=== PATIENT | female | born 1955 | race Caucasian/White ===

== ENCOUNTER 2017-01-22 16:54 | Inpatient (IN) | payer MEDICARE, MEDICAID ==
[~2017-01-22] VITALS: Ht 152.4 cm; Wt 70.3 kg
[2017-01-22 21:00] VITALS: BP 127/80
[2017-01-22] MEDS: DuoNeb 0.5-3(2.5)mg/3ml neb HHN SCH (23:29)
[2017-01-23] VITALS: BP 118/78
[2017-01-23] MEDS: DuoNeb 0.5-3(2.5)mg/3ml neb HHN SCH ×5 (02:51→20:05)
[2017-01-23 04:00] VITALS: BP 118/75
[2017-01-23 07:14] LABS: ANION GAP 19 (5-15); CARBON DIOXIDE 24 mEQ/L (20-30); CHLORIDE 99 mEQ/L (98-107); CREATININE 0.6 mg/dL (0.5-0.9); GLOMERULAR FILTRATION RATE > 60 mL/min (>60); HEMOLYSIS 31; POTASSIUM 4.1 mEQ/L (3.4-4.9); SODIUM 142 mEQ/L (135-145)
[2017-01-23 07:25] LABS: BASOPHILS % (AUTO) 1.6 % (0.0-2.0); LYMPHOCYTES % (AUTO) 31.3 % (20.0-45.0); MEAN CORPUSCULAR HEMOGLOBIN 31.6 PG (27.0-31.0); MEAN CORPUSCULAR HGB CONC 33.8 G/DL (32.0-36.0); MEAN CORPUSCULAR VOLUME 93 FL (80-99); MEAN PLATELET VOLUME 6.8 FL (6.5-10.1); MONOCYTES % (AUTO) 9.1 % (1.0-10.0); PLATELET COUNT 230 K/UL (150-450); RED BLOOD COUNT 4.61 M/UL (4.20-5.40); RED CELL DISTRIBUTION WIDTH 12.1 % (11.6-14.8); WHITE BLOOD COUNT 8.6 K/UL (4.8-10.8)
[2017-01-23 08:11] VITALS: BP 116/77
[2017-01-23 11:36] VITALS: BP 116/75
--- NOTE | 2017-01-23 13:37 | Diagnostic Imaging Report ---
Indication: ASTHMA chest pain Technique: One view of the chest Comparison: none Findings: Lungs and pleural spaces are clear. Heart size is normal Impression: No acute process
--- NOTE | 2017-01-23 13:43 | History and Physical ---
History of Present Illness General Date patient seen: Jan 23, 2017 Time patient seen: 13:42 Reason for Hospitalization: acute asthma exacerbation Present Illness HPI 61y/o female with pmh of asthma, HTN who presents with SOB and weakness. Pt lives at [facility]. She has been feeling more SOB for the past few days. She uses her albuterol inhaler PRN but has had to use it more often. She denies chest pain. Does c/o a cough w/ some mucus production. No fevers/chills, nausea/vomiting, diarrhea/constipation, abd pain. Also w/ generalized weakness and unsteady gait. States her ankles are weak. Allergies: Coded Allergies: No Known Allergies (Unverified , 01/22/17) Patient History History Provided By: Patient, Medical Record, PMD Healthcare decision maker Resuscitation status Advanced Directive on File Past Medical/Surgical History Past Medical/Surgical History: (1) HTN (hypertension) (2) Asthma Family History Family History: Patient reports no known family medical history. Social History Social History: (1) lives in [facility] Review of Systems Eye: Reports: no symptoms ENT: Reports: no symptoms Respiratory: Reports: cough, shortness of breath Cardiovascular: Reports: no symptoms Gastrointestinal: Reports: no symptoms Genitourinary: Reports: no symptoms Musculoskeletal: Reports: no symptoms Skin: Reports: no symptoms Psychiatric: Reports: no symptoms Neurological: Reports: no symptoms Endocrine: Reports: no symptoms Hematologic/Lymphatic: Reports: no symptoms All Other Systems: negative except mentioned in HPI Physical Exam Physical Exam Narrative General: alert, cooperative, no distress, appears stated age Head: normocephalic, without obvious abnormality, atraumatic Eyes: conjunctivae/corneas clear. PERRL, EOM's intact Throat: lips, mucosa, and tongue normal. MMM Neck: supple, symmetrical, trachea midline, and no JVD Lungs: some wheezing b/l Heart: regular rate and rhythm, S1, S2 normal, no murmur, click, rub or gallop Abdomen: soft, non-tender, non-distended, bowel sounds normal; no masses or organomegaly Extremities: extremities normal, atraumatic, no cyanosis or edema Pulses: 2+ and symmetric Skin: skin color, texture, turgor normal; no rashes or lesions Neurologic: grossly normal, no focal deficits Last 24 Hour Vital Signs Date Time Temp Pulse Resp B/P Pulse Ox O2 Delivery O2 Flow Rate FiO2 01/23/17 11:36 97.5 72 16 116/75 100 Nasal Cannula 01/23/17 11:35 83 16 99 Room Air 01/23/17 11:25 80 16 95 Room Air 01/23/17 08:11 98.2 73 14 116/77 94 Room Air 01/23/17 07:57 85 16 99 Room Air 01/23/17 07:48 81 16 95 Room Air 01/23/17 04:00 98.2 76 18 118/75 92 Room Air 01/23/17 03:13 82 18 98 Room Air 01/23/17 02:56 82 18 94 Room Air 01/23/17 00:00 97.7 74 18 118/78 93 Room Air 01/22/17 23:43 85 18 98 Room Air 01/22/17 23:30 80 18 Room Air 01/22/17 23:30 80 18 95 Room Air 01/22/17 21:00 97.7 80 18 127/80 95 Room Air Laboratory Tests Test 01/23/17 06:00 White Blood Count 8.6 K/UL (4.8-10.8) Red Blood Count 4.61 M/UL (4.20-5.40) Hemoglobin 14.6 G/DL (12.0-16.0) Hematocrit 43.1 % (37.0-47.0) Mean Corpuscular Volume 93 FL (80-99) Mean Corpuscular Hemoglobin 31.6 PG (27.0-31.0) H Mean Corpuscular Hemoglobin Concent 33.8 G/DL (32.0-36.0) Red Cell Distribution Width 12.1 % (11.6-14.8) Platelet Count 230 K/UL (150-450) Mean Platelet Volume 6.8 FL (6.5-10.1) Neutrophils (%) (Auto) 53.0 % (45.0-75.0) Lymphocytes (%) (Auto) 31.3 % (20.0-45.0) Monocytes (%) (Auto) 9.1 % (1.0-10.0) Eosinophils (%) (Auto) 5.0 % (0.0-3.0) H Basophils (%) (Auto) 1.6 % (0.0-2.0) Sodium Level 142 mEQ/L (135-145) Potassium Level 4.1 mEQ/L (3.4-4.9) Chloride Level 99 mEQ/L (98-107) Carbon Dioxide Level 24 mEQ/L (20-30) Anion Gap 19 (5-15) H Blood Urea Nitrogen 15 mg/dL (7-23) Creatinine 0.6 mg/dL (0.5-0.9) Estimat Glomerular Filtration Rate > 60 mL/min (>60) Glucose Level 85 mg/dL (74-106) Calcium Level 9.0 mg/dL (8.6-10.2) Height (Feet): 5 Weight (Pounds): 155 Medications Current Medications Medications (Trade) Dose Ordered Sig/Dee Route PRN Reason Start Time Stop Time Status Last Admin Dose Admin Albuterol/ Ipratropium (DuoNeb 0.5-3(2.5)mg/3ml) 3 ml Q4HRT HHN 01/22/17 23:00 01/27/17 22:59 01/23/17 11:28 Nicotine (Nicoderm) 1 patch Q24H TDERMAL 01/23/17 13:00 02/22/17 12:59 Assessment/Plan Problem List: (1) Asthma exacerbation ICD Codes: J45.901 - Unspecified asthma with (acute) exacerbation SNOMED: 723481407 (2) HTN (hypertension) ICD Codes: I10 - Essential (primary) hypertension SNOMED: 05520156 Status: stable Assessment/Plan Pt with acute asthma exacerbation possibly 2/2 viral URI/bronchitis Also w/ generalized weakness, deconditioning Admit inpt Duonebs q4h ATC and PRN Will hold abx at this time given pt HD stable and unlikely bacterial Consider course of steroids if continued wheezing O2 via NC PRN for O2 sats >90% F/u TSH, A1C, lipid panel PT/OT eval DVT Prophylaxis: SCD, HSQ Code Status: Full Hospital Classification Declaration: Based on this initial evaluation, and depending on the patient's clinical course, I anticipate that this patient will require hospitalization for 2-3 days for asthma exacerbation and close respiratory/hemodynamic monitoring. Disposition: Once the patient is stable to leave the hospital, I anticipate the patient will likely be discharged to the following environment:B&C vs SNF I spent 70 minutes on this patient's case, and 39 minutes were dedicated to counseling and/or care coordination. Discussed with patient/family, nursing staff, SW/CM, regarding clinical status, treatment course, and disposition planning. Time of note may not reflect time of encounter. Zan Wild M.D. Jan 23, 2017 13:43
[2017-01-23] MEDS ORDERED: DuoNeb 0.5-3(2.5)mg/3ml neb HHN PRN (14:00)
[2017-01-23] MEDS ORDERED: Mylanta II UD 30ml ORAL PRN (14:00)
[2017-01-23] MEDS ORDERED: Miralax 17gm pkt ORAL PRN (14:00)
[2017-01-23] MEDS ORDERED: Milk of Magnesia 30ml Ud ORAL PRN (14:00)
[2017-01-23 16:12] VITALS: BP 127/74
[2017-01-23 20:00] VITALS: BP 132/77
[2017-01-23] MEDS: Docusate 100mg cap ORAL SCH (21:00)
[2017-01-23] MEDS: Heparin 5000 units/ml inj SUBQ SCH (21:04)
[2017-01-24] VITALS: BP 132/82
[2017-01-24] MEDS: DuoNeb 0.5-3(2.5)mg/3ml neb HHN SCH ×7 (00:07→23:22)
[2017-01-24 04:00] VITALS: BP 110/52
[2017-01-24 07:05] LABS: BASOPHILS % (AUTO) 0.9 % (0.0-2.0); EOSINOPHILS % (AUTO) 4.5 % (0.0-3.0); LYMPHOCYTES % (AUTO) 24.7 % (20.0-45.0); MEAN CORPUSCULAR HEMOGLOBIN 32.6 PG (27.0-31.0); MEAN CORPUSCULAR VOLUME 93 FL (80-99); NEUTROPHILS % (AUTO) 60.8 % (45.0-75.0); PLATELET COUNT 316 K/UL (150-450); RED BLOOD COUNT 4.71 M/UL (4.20-5.40); RED CELL DISTRIBUTION WIDTH 12.5 % (11.6-14.8)
[2017-01-24 07:17] LABS: HEMOGLOBIN A1C 5.6 % (< 6.0)
[2017-01-24 07:28] LABS: TROPONIN I < 0.30 ng/mL (<=0.30)
[2017-01-24 07:31] LABS: ALANINE AMINOTRANSFERASE 12 U/L (3-33); ALBUMIN/GLOBULIN RATIO 1.2 (1.0-2.7); ANION GAP 19 (5-15); ASPARTATE AMINO TRANSFERASE 18 U/L (5-40); CALCIUM 8.8 mg/dL (8.6-10.2); CARBON DIOXIDE 24 mEQ/L (20-30); CHLORIDE 100 mEQ/L (98-107); CHOLESTEROL 194 mg/dL (< 200); CHOLESTEROL/HDL RATIO 4.7 (3.3-4.4); CREATININE 0.7 mg/dL (0.5-0.9); GLOMERULAR FILTRATION RATE > 60 mL/min (>60); HEMOLYSIS 11; LDL CHOLESTEROL (CALC.) 127 mg/dL (60-99); SODIUM 143 mEQ/L (135-145)
[2017-01-24 08:00] VITALS: BP 112/76
[2017-01-24] MEDS: Docusate 100mg cap ORAL SCH ×2 (08:44→20:55)
[2017-01-24] MEDS: Heparin 5000 units/ml inj SUBQ SCH ×2 (08:52→20:56)
[2017-01-24 12:00] VITALS: BP 130/81
--- NOTE | 2017-01-24 15:38 | General Progress Note ---
Assessment/Plan Problem List: (1) Asthma exacerbation ICD Codes: J45.901 - Unspecified asthma with (acute) exacerbation SNOMED: 731837629 (2) HTN (hypertension) ICD Codes: I10 - Essential (primary) hypertension SNOMED: 44115271 Subjective Date patient seen: Jan 24, 2017 Time patient seen: 15:38 ROS Limited/Unobtainable: No Constitutional: Reports: weakness HEENT: Reports: no symptoms Respiratory: Reports: cough, shortness of breath Gastrointestinal/Abdominal: Reports: no symptoms Genitourinary: Reports: no symptoms Neurologic/Psychiatric: Reports: no symptoms Endocrine: Reports: no symptoms Hematologic/Lymphatic: Reports: no symptoms Allergies: Coded Allergies: No Known Allergies (Unverified , 01/22/17) All Systems: reviewed and negative except above Objective Last 24 Hour Vital Signs Date Time Temp Pulse Resp B/P Pulse Ox O2 Delivery O2 Flow Rate FiO2 01/24/17 12:00 98.1 90 21 130/81 93 Room Air 01/24/17 11:32 85 16 Room Air 21 01/24/17 11:22 82 16 Room Air 01/24/17 08:00 98.2 86 18 112/76 93 Room Air 01/24/17 07:41 87 16 98 Room Air 01/24/17 07:29 84 16 92 Room Air 01/24/17 04:00 97.3 69 19 110/52 98 Room Air 01/24/17 02:24 Room Air 01/24/17 02:24 Room Air 01/24/17 00:00 97.3 75 19 132/82 98 Room Air 01/23/17 23:45 80 16 95 Room Air 21 01/23/17 23:30 74 16 92 Room Air 21 01/23/17 20:00 97.9 80 19 132/77 92 Room Air 01/23/17 19:45 82 16 96 Room Air 21 01/23/17 19:30 78 16 93 Room Air 21 01/23/17 16:12 98.2 85 15 127/74 93 Room Air Intake and Output 01/23/17 01/24/17 19:00 07:00 Intake Total 1600 ml 240 ml Balance 1600 ml 240 ml Intake Oral 1600 ml 240 ml # Voids 3 1 Laboratory Tests 01/24/17 05:45: White Blood Count 9.0, Red Blood Count 4.71, Hemoglobin 15.3, Hematocrit 43.8, Mean Corpuscular Volume 93, Mean Corpuscular Hemoglobin 32.6H, Mean Corpuscular Hemoglobin Concent 35.0, Red Cell Distribution Width 12.5, Platelet Count 316, Mean Platelet Volume 7.0, Neutrophils (%) (Auto) 60.8, Lymphocytes (%) (Auto) 24.7, Monocytes (%) (Auto) 9.0, Eosinophils (%) (Auto) 4.5H, Basophils (%) (Auto ) 0.9, Sodium Level 143, Potassium Level 4.0, Chloride Level 100, Carbon Dioxide Level 24, Anion Gap 19H, Blood Urea Nitrogen 15, Creatinine 0.7, Estimat Glomerular Filtration Rate > 60, Glucose Level 98, Hemoglobin A1c 5.6, Calcium Level 8.8, Total Bilirubin 0.9, Aspartate Amino Transf (AST/SGOT) 18, Alanine Aminotransferase (ALT/SGPT) 12, Alkaline Phosphatase 93, Troponin I < 0.30, Pro-B-Type Natriuretic Peptide 63, Total Protein 7.0, Albumin 3.9, Globulin 3.1, Albumin/Globulin Ratio 1.2, Triglycerides Level 130, Cholesterol Level 194, LDL Cholesterol 127H, HDL Cholesterol 41, Cholesterol/HDL Ratio 4.7H , Thyroid Stimulating Hormone (TSH) 1.650 Height (Feet): 5 Weight (Pounds): 155 Zan Wild M.D. Jan 24, 2017 15:38
[2017-01-24 16:00] VITALS: BP 144/78
[2017-01-24 20:00] VITALS: BP 133/84
[2017-01-25] VITALS: BP 129/84
[2017-01-25] MEDS: DuoNeb 0.5-3(2.5)mg/3ml neb HHN SCH ×3 (03:25→12:55)
[2017-01-25 04:00] VITALS: BP 132/76
[2017-01-25 08:00] VITALS: BP 127/79
[2017-01-25] MEDS: Docusate 100mg cap ORAL SCH (09:24)
[2017-01-25] MEDS: Heparin 5000 units/ml inj SUBQ SCH (09:26)
[2017-01-25] MEDS ORDERED: NICODERM CQ1 EAC1 TD (11:55)
[2017-01-25 12:00] VITALS: BP 142/91
[2017-01-25] MEDS ORDERED: DUONEB 0.5-3(2.53 ML HHN ×2 (12:01→14:17)
[2017-01-25] MEDS ORDERED: ACETAMINOPHEN325 M1 ORAL (12:03)
[2017-01-25] MEDS ORDERED: COLACE100 MG ORAL (12:11)
[2017-01-25] MEDS ORDERED: ALBUTEROL SULF8.5 GM INH (14:17)
--- NOTE | 2017-01-25 14:43 | Discharge Summary ---
Discharge Summary Hospital Course Date of Admission Jan 22, 2017 at 19:57 Date of Discharge Jan 25, 2017 at 13:30 Admitting Diagnosis HPI Marcie Fuentes is a 61 year old female who was admitted on Jan 22, 2017 at 19:57 for Acute Asthma Exacerbation Discharge Condition Upon Discharge: stable Discharge Disposition Patient was discharged to SNF/Subacute Facility(03) Discharge Diagnoses: Zan Wild M.D. Jan 25, 2017 14:43
--- NOTE | 2017-02-01 08:44 | Discharge Summary ---
Discharge Summary Hospital Course Date of Admission Jan 22, 2017 at 19:57 Date of Discharge Jan 25, 2017 at 13:30 Admitting Diagnosis HPI Marcie Fuentes is a 61 year old female who was admitted on Jan 22, 2017 at 19:57 for Acute Asthma Exacerbation Hospital Course #[id number] Discharge Discharge Disposition Patient was discharged to SNF/Subacute Facility(03) Discharge Diagnoses: Lachelle Wills NP Feb 01, 2017 08:44
--- NOTE | 2017-02-01 10:31 | Discharge Summary 2 SIG ---
DATE OF ADMISSION: 01/22/2017 DATE OF DISCHARGE: 01/25/2017 BRIEF HOSPITAL COURSE: The patient is a 61-year-old female with history of asthma and hypertension, presented to ED with shortness of breath and weakness. The patient lives at a [facility] and has been feeling more short of breath over the past few days. She has been using her albuterol inhaler and has been using it more often. She denied chest pain. She does have cough with productive mucus. No fever, chills, nausea or vomiting. No diarrhea. No constipation. No abdominal pain. She had generalized weakness and unsteady gait. She was admitted for acute asthma exacerbation, possibly secondary to a viral upper respiratory infection/bronchitis and generalized weakness. She was admitted to medical floor, was given DuoNeb respiratory treatment and underwent physical therapy and occupational therapy. Chest x-ray done, showed no acute process. No antibiotic therapy needed. She was eventually discharged to a SNF. FINAL DIAGNOSES: 1. Acute asthma exacerbation. 2. Hypertension. 3. Generalized weakness. Zan Wild M.D. I have been assigned to dictate discharge summary on this account and I was not involved in the patient's management. Lachelle Wills N.P. DR: HAY JOB#: [id number] CC:
== END 2017-01-25 13:30 | DRG 203 ==
LOC: 4E 19:57
DX: J45.901 Unspecified asthma with (acute) exacerbation (principal); I10 Essential (primary) hypertension; J06.9 Acute upper respiratory infection, unspecified; R53.1 Weakness
CPT/HCPCS: 36415; 71010; 80048; 80053; 80061; 83036; 83880; 84443; 84484; 85025; 94640; 94664; J7620